=== PATIENT | female | born 1990 | race Caucasian/White ===

== ENCOUNTER → 2016-05-27 | Outpatient (CLI) | payer BC ==
[~2016-05-27] MED LIST: FLUO40CA8 PO; FRRS300 PO; PRENTAB26 PO
== END | disposition home or self-care (01) ==
LOC: C.PAPS 10:54
PROVIDERS: ATTEND Physician Assistant
DX: Z01.419 Encounter for gynecological examination (general) (routine) without abnormal findings (principal)

== ENCOUNTER → 2017-05-20 | Outpatient (CLI) | payer OTHER ==
[2017-05-20 13:00] LABS: BASO % 0.1 %; BASO ABS # 0.03 K/uL (0-0.2); HEMOGLOBIN 13.5 g/dL (12.0-16.0); IG# 0.09 K/uL (0.00-0.02); LYMPH % 6.2 %; LYMPH ABS # 1.36 K/uL (1.2-3.4); MEAN CELL VOLUME 85.5 fL (80-100); MEAN CORPUSCULAR HEMOGLOBIN 29.6 pg (25-34); MEAN CORPUSCULAR HGB CONC 34.6 g/dl (32-36); MONO % 8.1 %; MONO ABS # 1.78 K/uL (0.11-0.59); NEUT % 85.2 %; NEUT ABS # 18.74 K/uL (1.4-6.5); PLATELET COUNT 280 K/uL (130-400); RED CELL DISTRIBUTION WIDTH CV 12.5 % (11.5-14.5); RED CELL DISTRIBUTION WIDTH SD 38.9 fL (36.4-46.3)
[2017-05-20 13:12] LABS: ALBUMIN 3.7 gm/dl (3.4-5.0); TOTAL PROTEIN 8.4 gm/dl (6.4-8.2)
== END | disposition home or self-care (01) ==
LOC: C.LAB1850 11:34
PROVIDERS: ATTEND Family Medicine
DX: J03.90 Acute tonsillitis, unspecified (principal)

== ENCOUNTER → 2017-05-20 | Outpatient (CLI) | payer OTHER | END | disposition home or self-care (01) | LOC: C.LABSPEC 11:53 | PROVIDERS: ATTEND Family Medicine | DX: J02.9 Acute pharyngitis, unspecified (principal) ==